=== PATIENT | male | born 1950 | race Caucasian/White ===

== ENCOUNTER → 2016-06-10 | Emergency (ER) | payer MEDICARE, OTHER ==
[~2016-06-10] MED LIST: Iodixanol* (CONTRAST) 320 MG/ML 100 ML SDV IV ONE
[2016-06-10 07:27] LABS: Hematocrit 44 % (42-52); Hemoglobin 14.7 g/dl (14.0-18.0); Mean Corpuscular HGB Conc 34 g/dl (31-36); Mean Corpuscular Hemoglobin 31 pg (27-31); Mean Corpuscular Volume 91 fL (80-94); Mean Platelet Volume 8 um3 (7.4-10.4); Red Blood Count 4.81 10^6/ul (4.0-5.4); Red Cell Distribution Width 13 % (10.5-15); White Blood Count 8.6 10^3/ul (3.5-10.8)
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
[2016-06-10 07:39] LABS: BUN/Creatinine Ratio 20.8 (8-20); C Reactive Protein 4.64 mg/L (< 5.00); Calcium 9.2 mg/dL (8.6-10.3); EGFR African American 70.6 (>60); EGFR Non-African American 54.9 (>60); Globulin 2.7 g/dL (2-4); Potassium 3.9 mmol/L (3.5-5.0); Total Bilirubin 0.4 mg/dL (0.2-1.0); Total Protein 6.7 g/dL (6.4-8.9)
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
[2016-06-10 09:23] VITALS: BP 152/129
== END | disposition home or self-care (01) ==
LOC: ED 06:14
DX: S39.011A Strain of muscle, fascia and tendon of abdomen, initial encounter (principal); S30.1XXA Contusion of abdominal wall, initial encounter; V49.9XXA Car occupant (driver) (passenger) injured in unspecified traffic accident, initial encounter; Y93.9 Activity, unspecified; Y99.9 Unspecified external cause status; R10.84 Generalized abdominal pain
CPT/HCPCS: 36415; 71260; 74177; 80053; 83605; 83690; 85025; 86140; 86850; 86900; 86901; 99283; Q9967

== ENCOUNTER 2019-08-02 07:26 | Emergency (ER) | payer MEDICARE, OTHER ==
[2019-08-02] MEDS ORDERED: Ondansetron INJ* 2 MG/ML VIAL IV ONE (07:45)
--- NOTE | 2019-08-02 07:49 | ED ---
GI/ HPI - HPI Summary HPI Summary: This patient is a 69 y/o male presenting to [facility] via EMS c/o nausea and vomiting. EMS reports patient has type 1 DM with an insulin pump. EMS denies any fever. Per EMS patient had one episode of emesis in the ambulance. Patient is a poor historian and unable to provide information about onset of symptoms. Patient does not remember what happened today prior to calling 911. Patient is able to state his name, location, month and year. Patient's , Rebeca, reports patient woke up this morning early and was sweating so profusely he went through 2 towels. Additionally per patient was confused, weak and had severe neck pain. states patient's eyes were also "killing him." was worried patient was having a heart attack and brought him to the emergency department. reports patient had a seizure 6 years ago and was followed up by Dr. Pulido. Patient has seen a doctor at [facility] for his kidney as patient has stage 3 kidney failure. Patient Lisinopril/HCTZ dose was recently increased from half a tab to 2 tabs daily. HPI IS LIMITED DUE TO LEVEL 5 CAVEAT - patient is a poor historian. Home Medications Medication Instructions Recorded Confirmed Type Gabapentin CAP(*) [Neurontin 300 300 mg PO QAM 06/19/13 08/02/19 History CAP(*)] Lisinopril/HCTZ 09/04.5(NF) 2 tab PO QAM 06/19/13 08/02/19 History [Zestoretic 09/04.5(NF)] [place]-3 Fatty Acids (Nf) [Fish Oil 1 tab PO DAILY 06/19/13 08/02/19 History (NF)] Simvastatin TAB(NF) [Zocor(NF)] 40 mg PO QPM 06/19/13 08/02/19 History metFORMIN* [Glucophage 1000 MG TAB 1,000 mg PO BID 06/19/13 08/02/19 History *] Aspirin TAB* [Aspirin 325 MG TAB*] 325 mg PO DAILY 08/06/13 08/02/19 History Diltiazem TAB* [Cardizem 30 MG 30 mg PO BID 08/02/19 08/02/19 History Tab*] Fluticasone NASAL SPRAY 50MCG* 1 spray BOTH NARES DAILY 08/02/19 08/02/19 History [Flonase NASAL SPRAY 50MCG*] Gabapentin CAP(*) [Neurontin 300 600 mg PO BEDTIME 08/02/19 08/02/19 History CAP(*)] Glucagon,Human Recombinant 1 mg INJ ONCE 08/02/19 08/02/19 History [Glucagon Emergency Kit] Ibuprofen TAB* [Motrin TAB* 400 MG] 600 mg PO TID 08/02/19 08/02/19 History Insulin Regular, Human [Humulin R 115 units SUBCUT TID 08/02/19 08/02/19 History U-500 Kwikpen 500 UNITS/ML x 3 Pens] Lisinopril TAB* [Prinivil TAB*] 20 mg PO BEDTIME 08/02/19 08/02/19 History Multivitamins/Minerals TAB* 1 tab PO DAILY 08/02/19 08/02/19 History [Theragran/minerals TAB*] Omeprazole CAP (NF) [Prilosec CAP* 20 mg PO BID 08/02/19 08/02/19 History 20 MG] - History of Current Complaint Chief Complaint: EDAltMentalStatus Stated Complaint: VOMITING Hx Obtained From: Patient Onset/Duration: Started Hours Ago, Still Present Timing: Lasting Hours Current Severity: Mild Pain Intensity: 5 Associated Signs and Symptoms: Positive: Nausea, Vomiting. Negative: Fever Aggravating Factor(s): Nothing Alleviating Factor(s): Nothing - Allergy/Home Medications Allergies/Adverse Reactions: Allergies Allergy/AdvReac Type Severity Reaction Status Date / Time No Known Allergies Allergy Verified 06/10/16 06:37 Home Medications: Home Medications Gabapentin CAP(*) [Neurontin 300 CAP(*)] 300 mg PO QAM 06/19/13 [History Confirmed 08/02/19] Lisinopril/HCTZ 20/12.5(NF) [Zestoretic 20/12.5(NF)] 2 tab PO QAM 06/19/13 [ History Confirmed 08/02/19] [place]bury-3 Fatty Acids (Nf) [Fish Oil (NF)] 1 tab PO DAILY 06/19/13 [History Confirmed 08/02/19] Simvastatin TAB(NF) [Zocor(NF)] 40 mg PO QPM 06/19/13 [History Confirmed ] metFORMIN* [Glucophage 1000 MG TAB *] 1,000 mg PO BID 06/19/13 [History Confirmed 08/02/19] Aspirin TAB* [Aspirin 325 MG TAB*] 325 mg PO DAILY 08/06/13 [History Confirmed 08/02/19] Diltiazem TAB* [Cardizem 30 MG Tab*] 30 mg PO BID 08/02/19 [History Confirmed ] Fluticasone NASAL SPRAY 50MCG* [Flonase NASAL SPRAY 50MCG*] 1 spray BOTH NARES DAILY 08/02/19 [History Confirmed 08/02/19] Gabapentin CAP(*) [Neurontin 300 CAP(*)] 600 mg PO BEDTIME 08/02/19 [History Confirmed 08/02/19] Glucagon,Human Recombinant [Glucagon Emergency Kit] 1 mg INJ ONCE 08/02/19 [ History Confirmed 08/02/19] Ibuprofen TAB* [Motrin TAB* 400 MG] 600 mg PO TID 08/02/19 [History Confirmed ] Insulin Regular, Human [Humulin R U-500 Kwikpen 500 UNITS/ML x 3 Pens] 115 units SUBCUT TID 08/02/19 [History Confirmed 08/02/19] Lisinopril TAB* [Prinivil TAB*] 20 mg PO BEDTIME 08/02/19 [History Confirmed ] Multivitamins/Minerals TAB* [Theragran/minerals TAB*] 1 tab PO DAILY 08/02/19 [ History Confirmed 08/02/19] Omeprazole CAP (NF) [Prilosec CAP* 20 MG] 20 mg PO BID 08/02/19 [History Confirmed 08/02/19] PMH/Surg Hx/FS Hx/Imm Hx Endocrine/Hematology History: Reports: Hx Diabetes - ON INSULIN Cardiovascular History: Reports: Hx Hypertension - ON DAILY MEDS Denies: Hx Congestive Heart Failure, Hx Pacemaker/ICD GI History: Reports: Hx Gastroesophageal Reflux Disease - OCCASSIONAL ACID REFLUX, Hx Hiatal Hernia - NO Sx History: Denies: Hx Renal Disease Musculoskeletal History: Reports: Hx Arthritis - bilateral hands Sensory History: Reports: Hx Cataracts - LEFT EYE, Hx Contacts or Glasses Denies: Hx Hearing Aid Opthamlomology History: Reports: Hx Cataracts - LEFT EYE, Hx Contacts or Glasses Neurological History: Reports: Hx Seizures - X3, EEG DONE 06/2013, Other Neuro Impairments/Disorders - diabetic neuropathy Psychiatric History: Denies: Hx Panic Disorder - Surgical History Surgical History: Yes Surgery Procedure, Year, and Place: L3/L4 disc surgery,. right wrist,. left shoulder,. 2008 lasik eye both eyes,. 2008 right eye retinal surgery and lens replacement Hx Anesthesia Reactions: Yes - GETS VIOLENT DURING SURGERY Infectious Disease History: No Infectious Disease History: Denies: Traveled Outside the [place] in Last 30 Days - Family History Known Family History: Positive: Diabetes, Other - cancer - Social History Alcohol Use: Rare Alcohol Amount: MAYBE YEARLY Substance Use Type: Reports: None Smoking Status (MU): Never Smoked Tobacco Have You Smoked in the Last Year: No Review of Systems - ROS Summary Review of Systems Summary: ROS IS LIMITED DUE TO LEVEL 5 CAVEAT - patient is a poor historian Positive: Skin Diaphoresis. Negative: Fever Positive: Vomiting, Nausea Musculoskeletal: Other - POSITIVE: neck pain Neurological/Mental Status: Other - POSITIVE: confusion Positive: Weakness - generalized All Other Systems Reviewed And Are Negative: No Physical Exam - Summary Physical Exam Summary: VITAL SIGNS: Reviewed. GENERAL: Patient is a well-developed and nourished male who is lying comfortable in the stretcher. Patient is not in any acute respiratory distress. Patient is a poor historian. HEAD AND FACE: No signs of trauma. No ecchymosis, hematomas or skull depressions. No sinus tenderness. EYES: PERRLA, EOMI x 2, No injected conjunctiva, no nystagmus. EARS: Hearing grossly intact. Ear canals and tympanic membranes are within normal limits. MOUTH: Oropharynx within normal limits. NECK: Supple, trachea is midline, no adenopathy, no JVD, no carotid bruit, no c- spine tenderness, neck with full ROM. CHEST: Symmetric, no tenderness at palpation LUNGS: Clear to auscultation bilaterally. No wheezing or crackles. CVS: Regular rate and rhythm, S1 and S2 present, no murmurs or gallops appreciated. ABDOMEN: Soft, non-tender. No signs of distention. No rebound no guarding, and no masses palpated. Bowel sounds are normal. EXTREMITIES: FROM in all major joints, no edema, no cyanosis or clubbing. NEURO: Alert and oriented x 3. No acute neurological deficits. Speech is normal and follows commands. SKIN: Dry and warm GCS: 15 Triage Information Reviewed: Yes Vital Signs On Initial Exam: Initial Vitals Temp Pulse Resp BP Pulse Ox 97.5 F 62 16 214/99 95 08/02/19 07:35 08/02/19 07:35 08/02/19 07:35 08/02/19 07:35 08/02/19 07:35 Vital Signs Reviewed: Yes Procedures - Sedation Patient Received Moderate/Deep Sedation with Procedure: No Diagnostics - Vital Signs Vital Signs Temp Pulse Resp BP Pulse Ox 08/02/19 07:35 97.5 F 62 16 214/99 95 - Laboratory Result Diagrams: 08/02/19 08:00 08/02/19 08:00 Lab Statement: Any lab studies that have been ordered have been reviewed, and results considered in the medical decision making process. - Radiology Chest XR Radiology Interpretation Completed By: Radiologist Summary of Radiographic Findings: IMPRESSION: No evidence for acute disease. Dr. Faye has reviewed this report. - CT Brain CT CT Interpretation Completed By: Radiologist Summary of CT Findings: IMPRESSION: ANEURYSMAL PATTERN OF SUBARACHNOID HEMORRHAGE, HASSAN GRADE 4, WITH A SMALL AMOUNT OF INTRAVENTRICULAR HEMORRHAGE AND MILD VENTRICULOMEGALY SUGGESTIVE OF EARLY HYDROCEPHALUS. PRELIMINARY FINDINGS WERE DISCUSSED WITH DR. FAYE IN THE EMERGENCY DEPARTMENT AT APPROXIMATELY 9:11 AM ON AUGUST 02, 2019. - EKG 07:48 Cardiac Rate: Bradycardia - at 58 bpm EKG Rhythm: Sinus Bradycardia Summary of EKG Findings: EKG at 0748 shows a sinus bradycardia at a rate of [address] elevations. This EKG was interpreted and reviewed by ED physician. Re-Evaluation - Re-Evaluation First Eval Re-Evaluation Time: 08:04 Comment: 212/90 manual blood pressure. Second Eval Re-Evaluation Time: 08:32 Comment: Nurse spoke with patient's for further information. GIGU Course/Dx - Course Assessment/Plan: This patient is a 69 y/o male presenting to [facility] via EMS c/o nausea and vomiting. EMS reports patient has type 1 DM with an insulin pump. EMS denies any fever. Per EMS patient had one episode of emesis in the ambulance. Patient is a poor historian and unable to provide information about onset of symptoms. Patient is able to state his location, month and year. Patient's , Rebeca, reports patient woke up this morning early and was sweating so profusely he went through 2 towels. Additionally per patient was confused, weak and had severe neck pain. states patient's eyes were also killing him. was worried patient was having a heart attack and brought him to the emergency department. reports patient had a seizure 6 years ago and was followed up by Dr. Pulido. Patient has seen a doctor at [facility] for his kidney as patient has stage 3 kidney failure. Patient Lisinopril/HCTZ dose was recently increased from half a tab to 2 tabs daily. HPI IS LIMITED DUE TO LEVEL 5 CAVEAT - patient is a poor historian. In the ED course the patient was placed in a color television console monitor, IV access was obtained, IV fluids were started. Past medical records reviewed. Blood test w/o a significant abnormality except for WBCs of 10.9, chloride 100, anion gap is 12, creatinine 1.36, glucose 355, lactic acid is 3.2, urinalysis is negative for UTI. Initially the patient is hypertensive therefore he was given 1 dose of hydralazine [address] impression: Aneurysmal pattern of cervical hemorrhage, appreciated. 4, with a small amount of intraventricular hemorrhage and mild ventriculomegaly suggestive of early hydrocephalus. In the ED course the patient was started with nicardipine drip to control high blood pressure and Keppra for prevention of seizures. I discussed the case with Dr. Davidson, neurosurgeon from [facility], and he accepted the patient for transfer. Patient continues to be hemodynamically stable. - Diagnoses Provider Diagnoses: Subarachnoid hemorrhage - Physician Notifications Discussed Care Of Patient With: Geo Finney Time Discussed With Above Provider: 09:11 Instructed by Provider To: Other - Dr. Finney, radiologist, reports brain CT shows subarachnoid hemorrhage. [09:24] Discussed the case with Dr. Davidson, neurosurgeon from [facility], who accepted the patient for transfer. - Critical Care Time Critical Care Time: 75-104 min Discharge ED - Sign-Out/Discharge Documenting (check all that apply): Patient Departure - TRANSFER to [facility] - Discharge Plan Condition: Stable Disposition: TRANS HIGHER LVL OF CARE FAC Referrals: Juarez ODONNELL,Peter Silva [Primary Care Provider] - - Billing Disposition and Condition Condition: STABLE Disposition: Trans Higher Lvl of Care Fac - Attestation Statements Document Initiated by Scribe: Yes Documenting Scribe: Mariella Garay Provider For Whom Scribe is Documenting (Include Credential): Fausto Faye MD Scribe Attestation: I, Mariella Garay, scribed for Fausto Faye MD on 08/02/19 at 1010. Scribe Documentation Reviewed: Yes Provider Attestation: The documentation as recorded by the sheylaibeMariella accurately reflects the service I personally performed and the decisions made by me, Fausto Faye MD Status of Scribe Document: Viewed
[2019-08-02] MEDS ORDERED: hydrALAZINE IV* 20 MG/ML VIAL IV SLOW PU ONE (08:05)
[2019-08-02 08:21] LABS: ABS Eosinophils 0.2 10^3/ul (0-0.6); ABS Lymphocytes 1.3 10^3/ul (1.0-4.8); ABS Monocytes 0.6 10^3/ul (0-0.8); ABS Neutrophils 8.8 10^3/ul (1.5-7.7); Eosinophil % 1.7 %; Hematocrit 47 % (42-52); Hemoglobin 16.1 g/dL (14.0-18.0); Lymphocyte % 11.9 %; Mean Corpuscular HGB Conc 34 g/dL (31-36); Mean Corpuscular Hemoglobin 32 pg (27-31); Mean Corpuscular Volume 93 fL (80-94); Mean Platelet Volume 8.2 fL (7.4-10.4); Platelet Count 231 10^3/uL (150-450); Red Blood Count 5.07 10^6 /uL (4.18-5.48); Red Cell Distribution Width 13 % (10-15); White Blood Count 10.9 10^3/uL (3.5-10.8)
[2019-08-02 08:31] LABS: Albumin 4.8 g/dL (3.2-5.2); Albumin/Globulin Ratio 1.6 (1-3); BUN/Creatinine Ratio 16.9 (8-20); C Reactive Protein 1.01 mg/L (<8.01); EGFR African American 62.5 (>60); EGFR Non-African American 51.7 (>60); Magnesium 1.9 mg/dL (1.9-2.7); Potassium 3.6 mmol/L (3.5-5.0); Total Bilirubin 0.4 mg/dL (0.2-1.0); Total Protein 7.8 g/dL (6.4-8.9)
[2019-08-02 08:33] LABS: Troponin I 0.02 ng/mL (<0.03)
[2019-08-02 08:47] LABS: Urine Appearance Clear; Urine Bilirubin Negative (Negative); Urine Blood Negative (Negative); Urine Color Yellow; Urine Glucose 3+(>=500 mg/dL) (Negative); Urine Ketones 1+ (Negative); Urine Nitrite Negative (Negative); Urine Protein 2+(100 mg/dL) (Negative); Urine Specific Gravity 1.016 (1.010-1.030); Urine Urobilinogen Negative (Negative)
[2019-08-02 09:02] LABS: Urine Bacteria Absent (Absent); Urine Red Blood Cell Trace(0-2/hpf) (Absent); Urine White Blood Cell Trace(0-5/hpf) (Absent)
[2019-08-02 09:09] LABS: Urine Benzodiazepine Screen None Detected (None Detect); Urine Opiates Screen None Detected (None Detect)
[2019-08-02] MEDS ORDERED: levETIRAcetam 1000MG IVPREMIX* 1,000 MG/100 ML BAG IVPB ONE (09:14)
[2019-08-02] MEDS ORDERED: Insulin REGULAR(*) 1 UNITS UNIT IV PUSH ONE (09:23)
[2019-08-02] MEDS ORDERED: niCARdipine 0.1MG/ML IVPREMIX* 20 MG/200 ML BAG IV SCH (10:00)
[2019-08-02 10:27] VITALS: BP 161/76
[2019-08-02 10:30] LABS: Hepatitis C Antibody Negative (Negative)
== END 2019-08-02 10:29 | disposition short-term general hospital (02) ==
LOC: ED 07:26
DX: I60.9 Nontraumatic subarachnoid hemorrhage, unspecified (principal); R11.2 Nausea with vomiting, unspecified; E10.22 Type 1 diabetes mellitus with diabetic chronic kidney disease; I12.9 Hypertensive chronic kidney disease with stage 1 through stage 4 chronic kidney disease, or unspecified chronic kidney disease; N18.3 Chronic kidney disease, stage 3 (moderate); Z96.41 Presence of insulin pump (external) (internal); M54.2 Cervicalgia; K21.9 Gastro-esophageal reflux disease without esophagitis; Z79.82 Long term (current) use of aspirin; Z79.899 Other long term (current) drug therapy; Z79.84 Long term (current) use of oral hypoglycemic drugs
CPT/HCPCS: 36415; 70450; 71045; 80053; 80307; 81003; 81015; 82140; 83605; 83690; 83735; 83880; 84484; 85025; 86140; 86803; 87040; 87086; 87635; 93005; 96365; 96375; 99285; G0480; G2023; J0360; J1953; J2405